=== PATIENT | female | born 1995 | race Caucasian/White ===

== ENCOUNTER 2016-07-14 20:18 | Emergency (ER) | payer BC ==
[2016-07-14 20:31] VITALS: BP 131/76
[2016-07-14] MEDS ORDERED: Ondansetron TAB* 4 MG PO ONE (20:52)
[2016-07-14] MEDS ORDERED: Acetaminophen TAB* 325 MG PO ONE (20:52)
--- NOTE | 2016-07-14 20:52 | UC ---
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 Negative: LOC (Time In Secs./ Mins/Hrs), LOC Duration Unknown, Confusion, Memory Loss, Seizure, Epistaxis, Dental Malocclusion, Neck Pain, Vomiting Related History: Similar Episode/Dx as - concussion - Allergies/Home Medications Allergies/Adverse Reactions: Allergies Allergy/AdvReac Type Severity Reaction Status Date / Time No Known Allergies Allergy Verified 07/14/16 20:31 Home Medications: Home Medications Ibuprofen TAB* [Advil TAB*] 400 mg PO PRN 07/14/16 [History] PMH/Surg Hx/FS Hx/Imm Hx Previously Healthy: Yes - Surgical History Surgical History: Yes Surgery Procedure, Year, and Place: NASAL SURGERY 2015 - Family History Known Family History: Negative: Cardiac Disease, Hypertension, Diabetes - Social History Alcohol Use: Occasionally Substance Use Type: None Smoking Status (MU): Never Smoked Tobacco Review of Systems Constitutional: Negative Skin: Negative Eyes: Photophobia ENT: Negative Respiratory: Negative Cardiovascular: Negative Gastrointestinal: Other - nausea Genitourinary: Negative Motor: Negative Neurovascular: Negative Musculoskeletal: Negative Neurological: Headache Psychological: Negative All Other Systems Reviewed And Are Negative: Yes Physical Exam Triage Information Reviewed: Yes Appearance: Well-Appearing, No Pain Distress, Well-Nourished Vital Signs: Initial Vital Signs Temp 98.3 F 07/14/16 20:25 Pulse 58 07/14/16 20:25 Resp 16 07/14/16 20:25 BP 131/76 07/14/16 20:25 Pulse Ox 100 07/14/16 20:25 Vital Signs Reviewed: Yes Eyes: Positive: Conjunctiva Clear, Other: - eomi/perrl, fundi benign ENT: Positive: Hearing grossly normal, TMs normal. Negative: Nasal congestion, Nasal drainage, Tonsillar exudate, Trismus, Muffled/hoarse voice Neck: Positive: Supple, Nontender, No Lymphadenopathy Respiratory: Positive: Lungs clear, Normal breath sounds, No respiratory distress Cardiovascular: Positive: RRR, No Murmur, Pulses Normal Abdomen Description: Positive: Nontender, No Organomegaly Musculoskeletal: Positive: ROM Intact, No Edema Neurological: Positive: Alert, Muscle Tone Normal, Other: - GCS 15/15, cn2-12 intact, normal gait, strength 5/5, symmetric DTRs Psychological Exam: Normal Skin Exam: Normal Head Injury Course/Dx - Differential Dx/Diagnosis Provider Diagnoses: concussion without LOC Discharge - Discharge Plan Condition: Stable Disposition: HOME Prescriptions: Ondansetron TAB* [Zofran Tab*] 4 mg PO Q6H PRN #10 tab PRN Reason: Nausea Patient Education Materials: Concussion (ED) Forms: *Gen. Provider Communication Referrals: Jimmy Best [Medical Doctor] - As Soon As Possible No Primary Care Phys,NOPCP [Primary Care Provider] - Additional Instructions: Rest- both mental and physical tylenol may be easier for you to tolerate then advil clear liquids tonight ice you may end up with a black eye see Dr. Best or one of his partners in follow up
[2016-07-14] MEDS ORDERED: Ondansetron ODT TAB* 4 MG PO ONE (20:56)
== END 2016-07-14 21:28 | disposition home or self-care (01) ==
LOC: UCEAST 20:18
DX: S06.0X0A Concussion without loss of consciousness, initial encounter (principal); W22.09XA Striking against other stationary object, initial encounter
CPT/HCPCS: 99212; A9270-GY; G0463